=== PATIENT | female | born 1995 | race American Indian/Alaskan Native ===

== ENCOUNTER 2019-06-19 12:15 | Emergency (ER) | payer SELFPAY ==
[2019-06-19 12:22] VITALS: BP 124/68
--- NOTE | 2019-06-19 12:23 | Event Note ---
ED Screening Note Date of service: 06/19/19 Time: 12:23 ED Screening Note: Pt complains of right foot pain after stepping on a nail x today This initial assessment/diagnostic orders/clinical plan/treatment(s) is/are subject to change based on patients health status, clinical progression and re- assessment by fellow clinical providers in the ED. Further treatment and workup at subsequent clinical providers discretion. Patient/guardian urged not to elope from the ED as their condition may be serious if not clinically assessed and managed. Initial orders include: XR tetanus
--- NOTE | 2019-06-19 13:01 | XRay Report ---
FOOT 3 VIEW(S) INDICATION / CLINICAL INFORMATION: stepped on a nail COMPARISON: None available. FINDINGS: No significant skeletal abnormality. No embedded radiopaque foreign body or soft tissue gas . Signer Name: En Carrillo MD Signed: 06/19/2019 12:57 PM Workstation Name: [id number]
--- NOTE | 2019-06-19 13:42 | Emergency Department Report ---
ED Extremity Problem HPI - General Chief complaint: Extremity Injury, Lower Stated complaint: RT FOOT PAIN/STEPPED ON NAIL Time Seen by Provider: 06/19/19 12:22 Source: patient Mode of arrival: Ambulatory Limitations: No Limitations - History of Present Illness MD Complaint: joint paint - Related Data Allergies Allergy/AdvReac Type Severity Reaction Status Date / Time No Known Allergies Allergy Unverified 06/19/19 12:18 ED Review of Systems ROS: Stated complaint: RT FOOT PAIN/STEPPED ON NAIL Other details as noted in HPI ED Past Medical Hx - Past Medical History Previous Medical History?: Yes - Surgical History Past Surgical History?: Yes Additional Surgical History: , Right great toe - Social History Smoking Status: Current Every Day Smoker Substance Use Type: Alcohol ED Physical Exam - General Limitations: No Limitations ED Course Vital Signs 06/19/19 12:19 Temperature 98.3 F Pulse Rate 76 Respiratory 18 Rate Blood Pressure 124/68 O2 Sat by Pulse 100 Oximetry ED Medical Decision Making - Radiology Data Radiology results: report reviewed FOOT 3 VIEW(S) INDICATION / CLINICAL INFORMATION: stepped on a nail COMPARISON: None available. FINDINGS: No significant skeletal abnormality. No embedded radiopaque foreign allie dy or soft tissue gas. Critical care attestation.: If time is entered above; I have spent that time in minutes in the direct care of this critically ill patient, excluding procedure time. ED Disposition Condition: Stable
--- NOTE | 2019-06-19 14:50 | Emergency Department Report ---
- General Chief complaint: Extremity Injury, Lower Stated complaint: RT FOOT PAIN/STEPPED ON NAIL Time Seen by Provider: 06/19/19 12:22 Source: patient Mode of arrival: Ambulatory Limitations: No Limitations - History of Present Illness Initial comments: patient is a 23-year-old male who presents emergency room after stepping on a nail last night. She states there was a board with a nails sticking out of it, and she accidentally stepped on it. She states she was able to easily remove the nail from her foot. She denies the nail breaking off. she states that she was not wearing shoes at the time of the incident. she is unsure of her last tetanus immunization. she denies any past medical history or allergies medications. she is ambulatory with some discomfort. - Related Data Allergies Allergy/AdvReac Type Severity Reaction Status Date / Time No Known Allergies Allergy Unverified 06/19/19 12:18 Abscess Boil HPI - HPI Chief Complaint: Extremity Injury, Lower Stated Complaint: RT FOOT PAIN/STEPPED ON NAIL Time Seen by Provider: 06/19/19 12:22 Allergies/Adverse Reactions: Allergies Allergy/AdvReac Type Severity Reaction Status Date / Time No Known Allergies Allergy Unverified 06/19/19 12:18 ED Review of Systems ROS: Stated complaint: RT FOOT PAIN/STEPPED ON NAIL Other details as noted in HPI Comment: All other systems reviewed and negative ED Past Medical Hx - Past Medical History Previous Medical History?: Yes - Surgical History Past Surgical History?: Yes Additional Surgical History: , Right great toe - Social History Smoking Status: Current Every Day Smoker Substance Use Type: Alcohol ED Physical Exam - General Limitations: No Limitations General appearance: alert, in no apparent distress - Head Head exam: Present: atraumatic, normocephalic - Eye Eye exam: Present: normal appearance - ENT ENT exam: Present: mucous membranes moist - Neurological Exam Neurological exam: Present: alert, oriented X3 - Psychiatric Psychiatric exam: Present: normal affect, normal mood - Skin Skin exam: Present: warm, dry, other (small 0.5 cm superificial puncture wound present to the plantar portion of the right heel, no active bleeding, no foreign body visualized, mild TTP, no deformity, FROM of the right toes and foot, neurovascularly intact) ED Course Vital Signs 06/19/19 12:19 Temperature 98.3 F Pulse Rate 76 Respiratory 18 Rate Blood Pressure 124/68 O2 Sat by Pulse 100 Oximetry ED Medical Decision Making - Radiology Data Radiology results: report reviewed FOOT 3 VIEW(S) INDICATION / CLINICAL INFORMATION: stepped on a nail COMPARISON: None available. FINDINGS: No significant skeletal abnormality. No embedded radiopaque foreign body or soft tissue gas. Signer Name: En Carrillo MD Signed: 06/19/2019 12:57 PM Workstation Name: [id number] Transcribed By: AJ Dictated By: En Carrillo MD Electronically Authenticated By: En Carrillo MD Signed Date/Time: 06/19/19 1257 DD/ 1256 TD/TT: - Medical Decision Making patient is a 23-year-old male who presents emergency room after stepping on a nail last night. She states there was a board with a nails sticking out of it, and she accidentally stepped on it. She states she was able to easily remove the nail from her foot. She denies the nail breaking off. she states that she was not wearing shoes at the time of the incident. she is unsure of her last tetanus immunization. she denies any past medical history or allergies medications. she is ambulatory with some discomfort. on exam: small 0.5 cm superificial puncture wound present to the plantar portion of the right heel, no active bleeding, no foreign body visualized, mild TTP, no deformity, FROM of the right toes and foot, neurovascularly intact. XR right foot: No significant skeletal abnormality. No embedded radiopaque foreign body or soft tissue gas. Wound irrigated with saline and thoroughly scrubbed with Betadine. Patient given tetanus immunization. No need for antibiotics as patient was not wearing shoes at the time of the incident. Advised patient to please keep area clean, dry, covered. May wash with soap and water and immediately dry. May use peroxide or alcohol 2-3 times a day for cleaning. No hot tub, pool, or soaking in water. Follow up with a primary care doctor in the next 2-3 days. Return to the emergency room for any new or worsening symptoms or any signs of infection as discussed. Critical care attestation.: If time is entered above; I have spent that time in minutes in the direct care of this critically ill patient, excluding procedure time. ED Disposition Clinical Impression: Puncture wound of foot Qualifiers: Encounter type: initial encounter Laterality: right Qualified Code(s): S91.331A - Puncture wound without foreign body, right foot, initial encounter Disposition: DC-01 TO HOME OR SELFCARE Is pt being admited?: No Does the pt Need Aspirin: No Condition: Stable Instructions: Puncture Wound (ED), Acute Wound Care (ED), Diphtheria Tetanus and Pertussis Vaccination (ED) Additional Instructions: please keep area clean, dry, covered. May wash with soap and water and immediately dry. May use peroxide or alcohol 2-3 times a day for cleaning. No hot tub, pool, or soaking in water. Follow up with a primary care doctor in the next 2-3 days. Return to the emergency room for any new or worsening symptoms or any signs of infection as discussed. Referrals: KHUSHI CASTILLO MD [Staff Physician] - 2-3 Days [facility] [Outside] - 2-3 Days [facility] [place] [Outside] - 2-3 Days Time of Disposition: 14:57 Print Language: KAZAKH
[2019-06-19] MEDS ORDERED: TETANUS,DIPH,PERTUSS(ACELL) VACCINE 0.5 ML SYRINGE IM ONE (15:22)
[2019-06-19] MEDS ORDERED: ACETAMINOPHEN 325 MG TAB PO ONE (15:22)
== END 2019-06-19 15:44 | disposition home or self-care (01) ==
LOC: ED 12:15
DX: S91.331A Puncture wound without foreign body, right foot, initial encounter (principal); F17.200 Nicotine dependence, unspecified, uncomplicated; Z98.890 Other specified postprocedural states; W22.8XXA Striking against or struck by other objects, initial encounter; Y93.89 Activity, other specified; Y92.89 Other specified places as the place of occurrence of the external cause; Y99.8 Other external cause status
CPT/HCPCS: 90471; 90715

== ENCOUNTER 2020-10-04 16:15 | Emergency (ER) | payer MEDICAID ==
--- NOTE | 2020-10-04 17:56 | XRay Report ---
CHEST 2 VIEWS INDICATION / CLINICAL INFORMATION: Cough, congestion. COMPARISON: None available. FINDINGS: SUPPORT DEVICES: None. HEART / MEDIASTINUM: No significant abnormality. LUNGS / PLEURA: Clear lungs. No significant pleural effusion. No pneumothorax. ADDITIONAL FINDINGS: No significant additional findings. IMPRESSION: 1. No acute abnormality of the chest. Signer Name: Avelino Beltre MD Signed: 10/04/2020 5:52 PM Workstation Name: [id number]
--- NOTE | 2020-10-04 18:30 | Emergency Department Report ---
Upper Respiratory HPI - HPI Chief Complaint: Upper Respiratory Infection Stated Complaint: MIGRAINE,COUGH, STD CHECK Time Seen by Provider: 10/04/20 16:58 Duration: 3 Days URI Symptoms: Rhinorrhea: Yes, Sore Throat: No, Ear Pain: No, Cough: Yes, Shortness of Breath: No, Sick Contacts: No, Unable to Take Fluids: No, Urine Output Abnormal: No, Listless Behavior: No Other History: This is a 24-year-old female nontoxic, well nourished in appearance, no acute signs of distress presents to the ED with c/o of productive cough, frontal sinus headache, rhinorrhea, nasal congestion x3 days. Patient describes productive cough as yellow mucus production. Patient denies any sick contact. Patient denies any recent travels, long car, recent hospital stays. Patient denies any calf pain or calf tenderness. Patient denies any chest pain, short of breath, fever, chills, nausea, vomiting, hemoptysis, numbness, tingling, headache or stiff neck. Patient denies any allergies or significant past medical history. Patient also has a secondary complaint of possible STD exposure. Patient stated that her boyfriend told her that she may have STDs. Patient denies any vaginal discharge, pain or swelling. Patient stated otherwise he is asymptomatic. Patient denies any vaginal ulcers or lesions. Patient denies any urinary symptoms. - Home Meds and Allergies Home Medications: Previous Rx's Medication Instructions Recorded Last Taken Type Amoxicillin/K Clav Tab [Augmentin 1 tab PO Q12HR #20 tab 10/04/20 Unknown Rx 875 mg] Benzonatate [Tessalon Perles] 100 mg PO Q8HR PRN #12 capsule 10/04/20 Unknown Rx Allergies/Adverse Reactions: Allergies Allergy/AdvReac Type Severity Reaction Status Date / Time No Known Allergies Allergy Verified 10/04/20 16:31 ED Review of Systems ROS: Stated complaint: MIGRAINE,COUGH, STD CHECK Other details as noted in HPI Constitutional: denies: chills, fever Eyes: denies: eye pain, eye discharge, vision change ENT: congestion. denies: ear pain, throat pain Respiratory: cough. denies: shortness of breath, wheezing Cardiovascular: denies: chest pain, palpitations Endocrine: no symptoms reported Gastrointestinal: denies: abdominal pain, nausea, diarrhea Genitourinary: denies: urgency, dysuria, discharge Musculoskeletal: denies: back pain, joint swelling, arthralgia Skin: denies: rash, lesions Neurological: denies: headache, weakness, paresthesias Psychiatric: denies: anxiety, depression Hematological/Lymphatic: denies: easy bleeding, easy bruising ED Past Medical Hx - Past Medical History Previous Medical History?: No - Surgical History Additional Surgical History: , Right great toe - Social History Smoking Status: Never Smoker Substance Use Type: None - Medications Home Medications: Home Medications Medication Instructions Recorded Confirmed Last Taken Type Amoxicillin/K Clav Tab [Augmentin 1 tab PO Q12HR #20 tab 10/04/20 Unknown Rx 875 mg] Benzonatate [Tessalon Perles] 100 mg PO Q8HR PRN #12 capsule 10/04/20 Unknown Rx ED Bronchiolitis Physical Exam - Exam General: Vital signs noted. No distress. Alert and acting appropriately. Neurologic: Alert and oriented, no deficits. Musculoskeletal: Unremarkable. ED Physical Exam - General Limitations: No Limitations General appearance: alert, in no apparent distress - Head Head exam: Present: atraumatic, normocephalic - Eye Eye exam: Present: normal appearance - ENT ENT exam: Present: normal exam, normal orophraynx - Neck Neck exam: Present: normal inspection, full ROM. Absent: tenderness, meningismus, lymphadenopathy - Respiratory Respiratory exam: Present: normal lung sounds bilaterally. Absent: respiratory distress, wheezes, rales, rhonchi, stridor, chest wall tenderness, accessory muscle use, decreased breath sounds, prolonged expiratory - Cardiovascular Cardiovascular Exam: Present: regular rate, normal rhythm, normal heart sounds. Absent: bradycardia, tachycardia, irregular rhythm, systolic murmur, diastolic murmur, rubs, gallop - GI/Abdominal GI/Abdominal exam: Present: soft. Absent: distended, tenderness - Extremities Exam Extremities exam: Present: normal inspection, full ROM - Back Exam Back exam: Present: normal inspection, full ROM. Absent: tenderness, CVA tenderness (R), CVA tenderness (L), muscle spasm, paraspinal tenderness, vertebral tenderness, rash noted - Neurological Exam Neurological exam: Present: alert, oriented X3, normal gait - Psychiatric Psychiatric exam: Present: normal affect, normal mood - Skin Skin exam: Present: warm, dry, intact, normal color. Absent: rash - Other Other exam information: Positive frontal sinus tenderness ED Course Vital Signs 10/04/20 18:52 Temperature 98.2 F Pulse Rate 70 Respiratory 16 Rate Blood Pressure 174/98 [Left] O2 Sat by Pulse 100 Oximetry - Reevaluation(s) Reevaluation #1: 10/04/20 18:30 Patient is speaking in full sentences with no signs of distress noted. ED Medical Decision Making - Radiology Data [facility] [address] [place] [address] XRay Report Signed Patient: ZARIA MAN MR#: [id number] : 1995 Acct:[id number] Age/Sex: 24 / F ADM Date: 10/04/20 Loc: ED Attending Dr: Ordering Physician: SHERLYN FU NP Date of Service: 10/04/20 Procedure(s): XR chest routine 2V Accession Number(s): [id number] cc: SHERLYN FU NP Fluoro Time In Minutes: CHEST 2 VIEWS INDICATION / CLINICAL INFORMATION: Cough, congestion. COMPARISON: None available. FINDINGS: SUPPORT DEVICES: None. HEART / MEDIASTINUM: No significant abnormality. LUNGS / PLEURA: Clear lungs. No significant pleural effusion. No pneumothorax. ADDITIONAL FINDINGS: No significant additional findings. IMPRESSION: 1. No acute abnormality of the chest. Signer Name: Avelino Beltre MD Signed: 10/04/2020 5:52 PM Workstation Name: [id number] Transcribed By: CARMEN Dictated By: Avelino Beltre MD Electronically Authenticated By: Avelino Beltre MD Signed Date/Time: 10/04/201751 DD/ 51 TD/TT: - Medical Decision Making This is a 25-year-old female that presents with sinusitis with viral bronchitis. Patient is stable and was examined by me. Chest x-ray has been obtained and dictated by radiologist with normal exam. Patient also has been given referrals for STD testing and follow-up. Patient is notified of x-ray results with no questions noted. Patient will be treated with Augmentin. Patient was instru cted to increase hydration, rest and take Motrin for fever episodes. Vitals stable. Patient is nonfebrile and normal heart rate. Patient was instructed Follow-up with a primary care doctor in 3-5 days or if symptoms worsen and continue return to emergency room as soon as possible. At time time of discharge, the patient does not seem toxic or ill in appearance. No acute signs of distress noted. Patient agrees to discharge treatment plan of care. No further questions noted by the patient.nt. Critical care attestation.: If time is entered above; I have spent that time in minutes in the direct care of this critically ill patient, excluding procedure time. ED Disposition Clinical Impression: Viral bronchitis Sinusitis Qualifiers: Sinusitis location: frontal Chronicity: acute Recurrence: non-recurrent Quali fied Code(s): J01.10 - Acute frontal sinusitis, unspecified Disposition: - TO HOME OR SELFCARE Is pt being admited?: No Does the pt Need Aspirin: No Condition: Stable Instructions: Sinusitis, Adult, [id number], Chronic Bronchitis (ED) Additional Instructions: Follow-up with a primary care doctor in 3-5 days or if symptoms worsen and continue return to emergency room as soon as possible. Prescriptions: Amoxicillin/K Clav Tab [Augmentin 875 mg] 1 tab PO Q12HR #20 tab Benzonatate [Tessalon Perles] 100 mg PO Q8HR PRN #12 capsule PRN Reason: Pain , Severe (7-10) Referrals: PRIMARY CAREMD [Referring] - 3-5 Days KHUSHI CASTILLO MD [Staff Physician] - 3-5 Days Forms: Work/School Release Form(ED) Time of Disposition: 18:31
[2020-10-04 18:53] VITALS: BP 174/98
== END 2020-10-04 18:40 | disposition home or self-care (01) ==
LOC: ED 16:15
DX: J32.9 Chronic sinusitis, unspecified (principal); J20.8 Acute bronchitis due to other specified organisms; B97.89 Other viral agents as the cause of diseases classified elsewhere; Z79.899 Other long term (current) drug therapy; Z98.890 Other specified postprocedural states
CPT/HCPCS: 71046